=== PATIENT | female | born 1990 | race Caucasian/White ===

== ENCOUNTER 2019-11-23 13:45 | Emergency (ER) | payer OTHER ==
--- NOTE | 2019-11-23 13:54 | PDOC ---
Rapid Medical Evaluation Time Seen by Provider: 11/23/19 13:50 Medical Evaluation: Allergies Allergy/AdvReac Type Severity Reaction Status Date / Time Penicillins Allergy Intermediate Rash Verified 05/29/19 08:47 acetaminophen AdvReac Intermediate Itching Verified 05/31/19 06:42 11/23/19 13:50 I have performed a brief in-person evaluation of this patient. CC: rash since Saturday. Seen at [facility] and treated with Medrol, pepcid, cetirizine with minimal relief PE: maculopapular rash to face, trunk and extremities. No Stridor. Lungs CTAB. Orders: nothing Patient will proceed to ED for further evaluation. Discharge Disposition - Diagnosis Rash - Referrals - Patient Instructions - Post Discharge Activity
[2019-11-23 13:56] VITALS: BP 110/68; PULSE 88; BMI 35.9
--- NOTE | 2019-11-23 14:24 | PDOC ---
History of Present Illness - General Chief Complaint: Allergic Reaction Stated Complaint: ALLERGIC REACTION Time Seen by Provider: 11/23/19 13:50 History Source: Patient Exam Limitations: No Limitations - History of Present Illness Initial Comments: 11/23/19 14:19 Patient is a 29-year-old female with no past medical history but with an allergy to penicillin and acetaminophen who presents the ED with diffuse urticaria for the last 2 days. She was seen at [facility] and given 1 dose of epinephrine and discharged with Pepcid, prednisone and Zyrtec. She states that her rash has not gotten any better and it may have gotten slightly worse. She denies any difficulty breathing, throat swelling or difficulty swallowing. She is tolerating her own secretions well. Past History - Medical History Allergies/Adverse Reactions: Allergies Allergy/AdvReac Type Severity Reaction Status Date / Time Penicillins Allergy Intermediate Rash Verified 11/23/19 13:51 acetaminophen AdvReac Intermediate Itching Verified 11/23/19 13:51 Home Medications: Ambulatory Orders Cetirizine HCl [Zyrtec -] 10 mg PO DAILY 11/23/19 Epinephrine [Epipen 2-Kerwin] 0.3 mg IJ ASDIR #1 kit 11/23/19 Famotidine [Pepcid] 40 mg PO DAILY 11/23/19 Methylprednisolone [Medrol Dose Kerwin] 4 mg PO ASDIR 11/23/19 Asthma: No Cancer: No Cardiac Disorders: No COPD: No Diabetes: No HTN: No Seizures: No Thyroid Disease: No - Reproductive History Is Patient Now?: No - Psycho-Social/Smoking History Smoking History: Never smoked Have you smoked in the past 12 months: No - Substance Abuse Hx (Audit-C & DAST Scrn) How often the patient has a drink containing alcohol: Never Score: In Men: 4 or > Positive; In Women: 3 or > Positive: 0 Screen Result (Pos requires Nsg. Audit-10AR): Negative In the last yr the pt used illegal drug/Rx for NonMed reason: No Score: Yes response is considered Positive: 0 Screen Result (Positive result requires Nsg. DAST-10): Negative Review of Systems - Review of Systems Comments:: 11/23/19 14:19 - Review of Systems Able to Perform ROS?: Yes Constitutional: No: Fever, Chills, Loss of Appetite, Night Sweats, Weakness HEENTM: No: Eye Pain, Vision changes, Ear Pain, Throat Pain, Throat Swelling, Mouth Pain, Difficulty Swallowing Respiratory: No: Cough, Shortness of Breath, Wheezing, Sputum Production Cardiac (ROS): No: Chest Pain, Chest Tightness, Palpitations, Irregular Heart Beat, Edema ABD/GI: No: Nausea, Vomiting, Abdominal Pain, Diarrhea : No Dysuria, No Hematuria, No Frequency, No Urgency Musculoskeletal: No: Muscle Pain, Back Pain, Joint Pain, Muscle Weakness, Neck Pain Integumentary: No: Lesions, positive: Diffuse body rash Neurological: No: Headache, Numbness, Tingling, Weakness, Speech Difficulties *Physical Exam - Vital Signs Last Vital Signs Temp Pulse Resp BP Pulse Ox 88 20 110/68 100 11/23/19 13:53 11/23/19 13:53 11/23/19 13:53 11/23/19 13:53 - Physical Exam 11/23/19 14:20 - Physical Exam General Appearance: Nourished, Appropriately Dressed, No Distress HEENT: EOMI, Normal Voice, No Pharyngeal Erythema, No Muffled/Hoarse voice, No Tonsillar Exudate, No Tonsillar Erythema, No Nasal Congestion, No Rhinorrhea, Hearing Grossly Normal, TMs Normal, No TM Bulging, No TM Dullness, No TM Erythema; no pharyngeal edema appreciated. Uvula midline without edema. No stridor. Neck: Supple, No Lymphadenopathy (R), No Lymphadenopathy (L), No Rigidity, No Decreased range of motion Respiratory/Chest: Lungs Clear, Normal Breath Sounds. No Respiratory Distress, No Accessory Muscle Use; good air entry bilaterally. No adventitious lung sounds appreciated. No wheezing/rales/rhonchi. Cardiovascular: Regular Rhythm, Regular Rate, S1, S2 Gastrointestinal/Abdominal: Normal Bowel Sounds, Soft. Non-tender, No Guarding, No Rebound, No Rigidity Musculoskeletal: Normal Inspection. No Decreased Range of Motion Extremity: Normal Capillary Refill, Normal Inspection Integumentary: Normal Color, Dry. Diffuse urticaria and wheals appreciated to the entire body. No lip or oral swelling appreciated. Neurologic: hospitality job titles II-XII NML intact, Fully Oriented, Alert, Normal Mood/Affect, Normal Response Medical Decision Making - Medical Decision Making 11/23/19 14:20 Assessment: Patient is a 29-year-old female with diffuse urticaria who is already taking Pepcid, prednisone and Zyrtec. She was given 1 dose of epinephr ine at [facility] days ago. Plan: -Benadryl 50 mg IM ordered -Patient has been advised to continue to take the medications that she was prescribed at the urgent care -We will refer her to dermatology for further evaluation and treatment and possible allergy testing. -She understands and agrees with this treatment plan and she is stable for discharge. Discharge - Discharge Information Problems reviewed: Yes Clinical Impression/Diagnosis: Rash, Urticaria Condition: Stable Disposition: HOME - Additional Discharge Information Prescriptions: Epinephrine [Epipen 2-Kerwin] 0.3 mg IJ ASDIR #1 kit - Follow up/Referral Referrals: Henrietta Carpenter MD [Staff Physician] - Call tomorrow - Patient Discharge Instructions Patient Printed Discharge Instructions: DI for Hives Additional Instructions: Continue to take the medications that were previously prescribed to you for your allergic reaction. Follow-up with dermatology for further evaluation and treatment for your allergic reaction. Return immediately to the emergency department if you have any difficulty swallowing your own saliva, any difficulty breathing, throat swelling or any other worsening symptoms. We will send an EpiPen to your pharmacy in the event that you need it for a lifesaving event if you begin to have throat swelling and difficulty breathing. - Post Discharge Activity
== END 2019-11-23 14:38 | disposition home or self-care (01) ==
LOC: JERFT 13:45
PROC: 3E023GC Introduction of Other Therapeutic Substance into Muscle, Percutaneous Approach (ICD-10-PCS; principal; 2019-11-23)
DX: L50.0 Allergic urticaria (principal); R21 Rash and other nonspecific skin eruption
CPT/HCPCS: 99284-25